=== PATIENT | male | born 1945 | race Caucasian/White ===

== ENCOUNTER 2018-11-14 13:46 | Inpatient (IN) | payer OTHER, MEDICARE ==
--- NOTE | 2018-11-14 14:29 | EDPHY ---
H & P Stated Complaint: open wound r caballero concerned r/t infection/hx diabetes Time Seen by Provider: 11/14/18 14:22 HPI/ROS: CHIEF COMPLAINT: Diabetic wound HISTORY OF PRESENT ILLNESS: Patient is a 73-year-old man with morbid obesity and type 2 diabetes as well as a single cardiac stent who comes to the emergency department complaining of right lower extremity wound. He states that he recently moved from [place] and has not established primary care here. He states that he has been eating increased carbohydrates since moving as well. He noticed over last several days a wound developing to his right caballero. It is foul smelling. There is surrounding erythema. Severity: Moderate Modifying factors: The none REVIEW OF SYSTEMS: Constitutional: denies: chills, fever, recent illness, recent injury EENTM: denies: blurred vision, double vision, nose congestion Respiratory: denies: cough, shortness of breath Cardiac: denies: chest pain, irregular heart rate, lightheadedness, palpitations Gastrointestinal/Abdominal: denies: abdominal pain, diarrhea, nausea, vomiting, blood streaked stools Genitourinary: denies: dysuria, frequency, hematuria, pain Musculoskeletal: denies: joint pain, muscle pain Skin: See HPI Neurological: denies: headache, numbness, paresthesia, tingling, dizziness, weakness Hematologic/Lymphatic: denies: blood clots, easy bleeding, easy bruising Immunologic/allergic: denies: HIV/AIDS, transplant 10 systems reviewed and negative except as noted EXAM: GENERAL: Well-appearing, well-nourished and in no acute distress. HEAD: Atraumatic, normocephalic. EYES: Pupils equal round and reactive to light, extraocular movements intact, sclera anicteric, conjunctiva are normal. ENT: TMs normal, nares patent, oropharynx clear without exudates. Moist mucous membranes. NECK: Normal range of motion, supple without lymphadenopathy or JVD. LUNGS: Breath sounds clear to auscultation bilaterally and equal. No wheezes rales or rhonchi. HEART: Regular rate and rhythm without murmurs, rubs or gallops. ABDOMEN: Soft, nontender, normoactive bowel sounds. No guarding, no rebound. No masses appreciated. BACK: No CVA tenderness, no spinal tenderness, step-offs or deformities EXTREMITIES: Normal range of motion, no pitting or edema. No clubbing or cyanosis. NEUROLOGICAL: Cranial nerves II through XII grossly intact. Normal speech, normal gait. 5/5 strength, normal movement in all extremities, normal sensation , normal reflexes PSYCH: Normal mood, normal affect. SKIN: 5 x 4 cm irregular area of ulceration with surrounding erythema. Foul smelling, no visible purulent drainage or fluctuance. Source: Patient Exam Limitations: No limitations - Personal History Current Tetanus Diphtheria and Acellular Pertussis (TDAP): Yes - Medical/Surgical History Hx Asthma: No Hx Chronic Respiratory Disease: No Hx Diabetes: Yes Hx Cardiac Disease: No Hx Renal Disease: No Hx Cirrhosis: No Hx Alcoholism: No Hx HIV/AIDS: No Hx Splenectomy or Spleen Trauma: No Other PMH: htn diabetes cardiac stent - Family History Significant Family History: No pertinent family hx - Social History Smoking Status: Never smoked Alcohol Use: None Drug Use: None Constitutional: Initial Vital Signs Temperature (C) 36.7 C 11/14/18 13:51 Heart Rate 61 11/14/18 13:51 Respiratory Rate 18 11/14/18 13:51 Blood Pressure 144/62 H 11/14/18 13:51 O2 Sat (%) 95 11/14/18 13:51 O2 Delivery Mode Room Air Allergies/Adverse Reactions: No Known Allergies Allergy (Unverified 11/14/18 13:48) Home Medications: Medication Instructions Recorded Levothyroxine [Synthroid 75 mcg 75 mcg PO DAILY06 11/14/18 (*)] Lisinopril [Zestril 40 mg (*)] 40 mg PO DAILY 11/14/18 Multivitamins [Multivitamin (*)] 1 each PO DAILY 11/14/18 metFORMIN HCL [Glucophage 500 mg 500 mg PO BIDMEAL 11/14/18 (*)] Medical Decision Making ED Course/Re-evaluation: 3:00 p.m. discussed the case with Dr. Bender who will admit. Antibiotics begun. Lab work pending. Differential Diagnosis: Partial list of the Differential diagnosis considered include but were not limited to; diabetic wound infection, poorly-controlled diabetes, sepsis, cellulitis and although unlikely based on the history and physical exam, I also considered acute coronary disease, ischemia, DVT. - Data Points Laboratory Results: Laboratory Results 11/14/18 14:40 11/14/18 14:40 Microbiology Results: MICROBIOLOGY 11/14/18 14:50 Leg - Anaerobic Tube/Swab Gram Stain - Final Medications Given: Metronidazole/Sodium Chloride (Flagyl 500 Mg (Premix)) 100 mls @ 100 mls/hr IV Q8HRS BINDU PRN Reason: Protocol Stop: 12/14/18 15:59 Last Admin: 11/15/18 05:02 Dose: 100 mls Levothyroxine Sodium (Synthroid) 75 mcg PO DAILY06 [facility] Stop: 05/14/19 05:59 Last Admin: 11/15/18 05:02 Dose: 75 mcg Metformin HCl (Glucophage) 500 mg PO BIDMEAL BINDU Stop: 05/13/19 17:59 Last Admin: 11/14/18 17:56 Dose: 500 mg Discontinued Medications Sodium Chloride (Ns) 1,000 mls @ 0 mls/hr IV ONCE ONE; Wide Open PRN Reason: Protocol Stop: 11/14/18 14:31 Last Admin: 11/14/18 14:58 Dose: 1,000 mls Ceftriaxone Sodium/Dextrose (Rocephin 1 Gm (Premix)) 50 mls @ 100 mls/hr IV EDNOW ONE PRN Reason: Protocol Stop: 11/14/18 15:01 Last Admin: 11/14/18 15:01 Dose: 50 mls Departure - Departure Disposition: [place] Inpatient Acute Clinical Impression: Wound of right lower extremity Qualifiers: Encounter type: initial encounter Qualified Code(s): S81.801A - Unspecified open wound, right lower leg, initial encounter Diabetes Qualifiers: Diabetes mellitus type: type 2 Diabetes mellitus longterm insulin use: without middle or intermediate school principal use Diabetes mellitus complication status: with skin complications Diabetes mellitus complication detail: with other skin ulcer Qualified Code(s): E11.622 - Type 2 diabetes mellitus with other skin ulcer Condition: Fair
[2018-11-14] MEDS ORDERED: NS 1,000 ML IV ONE (14:30)
[2018-11-14 14:51] LABS: PLATELET COUNT 186 10^3/uL (150-400)
[2018-11-14 15:04] LABS: INR 1.05 (0.83-1.16); PROTIME(PATIENT) 13.3 SEC (12.0-15.0)
[2018-11-14] MEDS ORDERED: ONDANSETRON 4 MG/2 ML VIAL IVP PRN (15:23)
[2018-11-14] MEDS ORDERED: ONDANSETRON DISINTEGRATING 4 MG TAB PO PRN (15:23)
[2018-11-14] MEDS ORDERED: PROMETHAZINE HCL 25 MG/ML INJ IVP PRN (15:23)
[2018-11-14] MEDS ORDERED: oxyCODONE IR 5 MG TAB PO PRN (15:23)
[2018-11-14] MEDS ORDERED: HYDROmorphONE/DILAUDID 1 MG/ML INJ IVP PRN (15:23)
--- NOTE | 2018-11-14 15:41 | PDGENHP ---
History and Physical - Chief Complaint leg wound - History of Present Illness 73 yo M with PMH of DM2, morbid obesity, chronic venous stasis presenting with a wound present on his right caballero. He notes that he first noted the wound about one week ago, and he attempted to manage it himself with hydrogen peroxide and alcohol applied topically. He notes that despite that, it continued to worsen, and now is an open wound with surrounding erythema, purulent drainage and pain. He notes he has had similar issues in the past, but that in general he has managed his venous stasis with compression, and he has avoided any skin breakdown or infection for the most part when he is being seen by wound care. He has been in the process of moving here from [place], and notes that this has taken about 2 years and is still not complete, and due to that, he has neglected his health to some extent. He has reportedly been eating 'lots of carbs' and not checking his blood sugar. He has not established care here yet with a PCP and has not had any wound care either. He denies fever or chills, no chest pain or sob, no n/v. History Information - Allergies/Home Medication List Allergies/Adverse Reactions: No Known Allergies Allergy (Unverified 11/14/18 13:48) Home Medications: Levothyroxine [Synthroid 75 mcg (*)] 75 mcg PO DAILY06 11/14/18 [Last Taken ] Lisinopril [Zestril 40 mg (*)] 40 mg PO DAILY 11/14/18 [Last Taken 11/14/18] Multivitamins [Multivitamin (*)] 1 each PO DAILY 11/14/18 [Last Taken 11/14/18] metFORMIN HCL [Glucophage 500 mg (*)] 500 mg PO BIDMEAL 11/14/18 [Last Taken 09:00] I have personally reviewed and updated: family history, medical history, social history, surgical history - Past Medical History coronary artery disease (remote hx of stent x 1), diabetes type 2, hypertension , pneumonia Additional medical history: chronic venous stasis--notes 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 MARIO - Family History Positive for: hypertension, myocardial infarction (father of RI at age 67) , stroke (mother with multi infarct dementia and hx of stroke in her family) - Social History Smoking Status: Never smoked Alcohol Use: None Drug Use: None Additional social history: single, recently moved to [place] from [facility] Review of Systems Review of Systems: ROS: 10pt was reviewed & negative except for what was stated in HPI & below Physical Exam Physical Exam: Temp Pulse Resp BP Pulse Ox 36.7 C 61 18 144/62 H 95 11/14/18 13:51 11/14/18 13:51 11/14/18 13:51 11/14/18 13:51 11/14/18 13:51 Constitutional: no apparent distress, obese Eyes: PERRL, anicteric sclera Ears, Nose, Mouth, Throat: moist mucous membranes, hearing normal Cardiovascular: regular rate and rhythym, no murmur, rub, or gallop, edema Respiratory: no respiratory distress, no rales or rhonchi Gastrointestinal: normoactive bowel sounds, soft, non-tender abdomen Genitourinary: no bladder tenderness Skin: warm, erythema, other (2cm open purulent ulcer on right caballero with surrounding erythema) Musculoskeletal: full muscle strength, asymmetric calves (right > left) Neurologic: AAOx3 Psychiatric: interacting appropriately, not anxious, not encephalopathic Lab Data & Imaging Review 11/14/18 14:40 11/14/18 14:40 WBC 7.66 10^3/uL (3.80-9.50) 11/14/18 14:40 RBC 4.57 10^6/uL (4.40-6.38) 11/14/18 14:40 Hgb 14.3 g/dL (13.7-17.5) 11/14/18 14:40 Hct 43.3 % (40.0-51.0) 11/14/18 14:40 MCV 94.7 fL (81.5-99.8) 11/14/18 14:40 MCH 31.3 pg (27.9-34.1) 11/14/18 14:40 MCHC 33.0 g/dL (32.4-36.7) 11/14/18 14:40 RDW 15.5 % (11.5-15.2) H 11/14/18 14:40 Plt Count 186 10^3/uL (150-400) 11/14/18 14:40 MPV 9.4 fL (8.7-11.7) 11/14/18 14:40 Neut % (Auto) 71.3 % (39.3-74.2) 11/14/18 14:40 Lymph % (Auto) 19.3 % (15.0-45.0) 11/14/18 14:40 [place] % (Auto) 7.7 % (4.5-13.0) 11/14/18 14:40 Eos % (Auto) 1.0 % (0.6-7.6) 11/14/18 14:40 Baso % (Auto) 0.4 % (0.3-1.7) 11/14/18 14:40 Nucleat RBC Rel Count 0.0 % (0.0-0.2) 11/14/18 14:40 Absolute Neuts (auto) 5.46 10^3/uL (1.70-6.50) 11/14/18 14:40 Absolute Lymphs (auto) 1.48 10^3/uL (1.00-3.00) 11/14/18 14:40 Absolute Monos (auto) 0.59 10^3/uL (0.30-0.80) 11/14/18 14:40 Absolute Eos (auto) 0.08 10^3/uL (0.03-0.40) 11/14/18 14:40 Absolute Basos (auto) 0.03 10^3/uL (0.02-0.10) 11/14/18 14:40 Absolute Nucleated RBC 0.00 10^3/uL (0-0.01) 11/14/18 14:40 Immature Gran % 0.3 % (0.0-1.1) 11/14/18 14:40 Immature Gran # 0.02 10^3/uL (0.00-0.10) 11/14/18 14:40 PT 13.3 SEC (12.0-15.0) 11/14/18 14:40 INR 1.05 (0.83-1.16) 11/14/18 14:40 APTT 31.5 SEC (23.0-38.0) 11/14/18 14:40 VBG Lactic Acid 1.2 mmol/L (0.7-2.1) 11/14/18 14:37 Sodium 137 mEq/L (135-145) 11/14/18 14:40 Potassium 4.3 mEq/L (3.5-5.2) 11/14/18 14:40 Chloride 97 mEq/L (97-110) 11/14/18 14:40 Carbon Dioxide 28 mEq/l (22-31) 11/14/18 14:40 Anion Gap 12 mEq/L (6-14) 11/14/18 14:40 BUN 17 mg/dL (7-23) 11/14/18 14:40 Creatinine 1.1 mg/dL (0.7-1.3) 11/14/18 14:40 Estimated GFR > 60 11/14/18 14:40 Glucose 105 mg/dL (70-100) H 11/14/18 14:40 Calcium 9.3 mg/dL (8.5-10.4) 11/14/18 14:40 Total Bilirubin 0.6 mg/dL (0.1-1.4) 11/14/18 14:40 Assessment & Plan Assessment: Diabetes (Acute) Wound of right lower extremity (Acute) 73 yo M with PMH of CAD, DM, morbid obesity, chronic venous stasis presenting with RLE cellulitis # RLE cellulitis: in the setting of chronic venous stasis and venous stasis ulcer on the right caballero with associated purulence/erythema and pain. Started on ctx and will continue with addition of flagyl for now. Does not have c/o systemic sxs currently and not septic on arrival. # chronic venous stasis: with right leg significantly more edematous than left and patient reporting chronic varicosities on the right, will get US to r/o DVT and ask wound care to evaluate while in house, would benefit from OP wound care f/u as well # DM2: patient reports non compliance with DM diet and not checking his sugars regularly, currently on metformin 500bid with essentially normal BG on arrival, will get A1c, continue op regimen for now # HTN: on lisinopril as an OP and BP appears well controlled, continue OP regimen # CAD: without c/o chest pain, remote hx of stent # hypothyroid: continue lt4 # observation status # Patient new to my care. Old records reviewed and summarized as above. Care plan reviewed with ER doctor as above.
--- NOTE | 2018-11-14 17:25 | WOCRNPDOC ---
WOCRN Advanced Assessment Note - Skin Integrity Problem, Advanced Assess Right Anterior Lower Leg Dressing Type: Open to Air Exudate Amount: Scant Exudate Characteristic(s): Serosanguinous Integumentary Issue Intervention: Dressing Applied, Dressing Initialed & Dated Linda Wound Tissue: Erythema, Swollen, Lipodermatosclerosis, Hemosiderin Staining , Venous Dermatitis, Xerotic Linda Wound Swelling: None Wound Bed Constitution: Red/[place] - Non Granular Tissue (100%) Wound Edges: Attached, Irregular Site Measurement - Head-to-Toe Length X Width X Depth (cm): 3x3.5x0.1 (superior wound), 1x1.2x0.1 (inferior). Pulse Location & Description: Not able to palpate on right foot, left foot DP is 1+ Extremity Temperature: Warm Skin Integrity Problem Comment: Right leg is very swollen, 56 cm calf circumference and 35 at the ankle vs the left leg which is 50.5 and 30 cm respectively. There two wounds that are irregular chronic in appearance on the anterior lower leg. The wounds are surrounded by hemosiderin stained tissue with lipodermatosclerosis. However there is no staining circumferentially on either leg. Patient has varicose veins bilaterally, but worse in the right leg. Toes have a purple hue to them and the right foot has structural neuropathic changes. Discussed at length that patient needs to maintain a compression therapy fpc. Spandigrip size G provided. Patient balked at the compression and did not want to apply them as he thought they would be too tight. Advised that patient establish a relationship with a option trader now that he has moved to [place]. Outpatient wound healing center brochure provided. Patient should follow up with outpatient [facility] after D/C for continued wound care and compression therapy. Cleaned wounds with ns and gauze. Skin prep applied linda wound. Silvasorb to wound beds and dimethicone cream to skin around wounds. Wound care will follow.
[2018-11-14] MEDS: metFORMIN HCL 500 MG TAB PO SCH (17:56)
[2018-11-15] MEDS: LEVOTHYROXINE 75 MCG TAB PO SCH (05:02)
[2018-11-15 05:09] LABS: PLATELET COUNT 150 10^3/uL (150-400)
[2018-11-15] MEDS ORDERED: ENOXAPARIN 40 MG/0.4 ML SYR SC SCH (09:00)
[2018-11-15] MEDS: LISINOPRIL 40 MG TAB PO SCH (10:11)
[2018-11-15] MEDS: MULTIVITAMINS 1 EACH TAB PO SCH (10:11)
[2018-11-15] MEDS: metFORMIN HCL 500 MG TAB PO SCH ×2 (10:21→19:46)
[2018-11-15] MEDS: ACETAMINOPHEN 325 MG TAB PO PRN ×2 (10:22→17:56)
--- NOTE | 2018-11-15 11:37 | GCON ---
[f rep st] CONSULTATION DATE OF CONSULTATION: 11/15/2018 REFERRING PHYSICIAN: Tavon Olvera MD REASON FOR CONSULTATION: Right lower extremity cellulitis in the setting of venous stasis ulceration . HISTORY OF PRESENT ILLNESS: The patient is a 73-year-old male with a past medical history of venous insufficiency/stasis dermatitis, type 2 diabetes and morbid obesity, I am asked to see in consultatio n for new onset right lower extremity ulceration with concomitant skin and soft tissue infection. Th e patient describes developing an ulceration over the right lower extremity approximately 7-10 days a go. He treated this himself with hydrogen peroxide and alcohol. He has been in a complicated move f [facility] to [place] and notes that he has not been attending to his healthcare as he typically should be. More recently, he developed pain and erythema surrounding the area of ulceration with [facility] drainage of fluid. He has not experienced fever or chills. Today, he notes pain in a burning qual ity extending from the area of erythema more proximally toward the knee. He describes a prior histor y of venous insufficiency ulcerations approximately 3 years ago, treated successfully with compressio n and local wound care in [place]. He has not had any pain in his right thigh or inguinal region. He does not check his blood sugars to determine if his glycemic control has been more challenging. [place] park has spent a significant amount of time in the car and has not been able to elevate his leg signific antly. Given the above findings, I am now asked to assist in his ongoing management. PAST MEDICAL HISTORY: Coronary artery disease, diabetes mellitus, obesity, venous insufficiency, hyp ertension, hypothyroidism. PAST SURGICAL HISTORY: Appendectomy, possible small bowel obstruction with lysis of adhesions, coron marietta stent x1. CURRENT MEDICATIONS: Ceftriaxone 1 g IV daily, metronidazole 500 mg IV q.8 hours, multivitamin p.o. daily, metformin 500 mg p.o. twice daily, lisinopril 40 mg p.o. daily, Synthroid 75 mcg p.o. daily, L ovenox 40 mg subcutaneous daily. ALLERGIES: No known drug allergies. SOCIAL HISTORY: The patient does not smoke or drink alcohol. No drug use. Recent stress related to move as outlined above. FAMILY HISTORY: Coronary artery disease. REVIEW OF SYSTEMS: Outside of that noted in the HPI, the remainder of 10-system review is unremarkab le. The patient describes having lower blood pressure when receiving his antibiotics and sensation o f cold feet, which is now resolved. PHYSICAL EXAMINATION: VITAL SIGNS: Temperature 36.8, heart rate 52, respiratory rate 18, blood pres sure 135/71, oxygen saturation 91% on room air. GENERAL: The patient is an obese male in no acute d istress. He appears nontoxic. HEENT: There is no scleral icterus, conjunctival injection, or conju nctival petechiae. Oropharynx shows moist mucous membranes. No nasal discharge. No tenderness over the sinuses. NECK: Supple without palpable lymphadenopathy or thyromegaly. CHEST: Clear to auscu ltation bilaterally without adventitious sounds. Respiratory effort is normal. CARDIOVASCULAR: Reg ular rate and rhythm with distant heart tones. Multiple varicosities present in the lower extremitie s bilaterally. ABDOMEN: Obese, nontender and nondistended. Bowel sounds are present. No palpable organomegaly, but significantly limited by body habitus. MUSCULOSKELETAL: Right lower extremity diane ws 3+ edema; there is a central ulceration over the anterior caballero measuring approximately 4 x 5 cm; t here are violaceous, slightly boggy margins which are tender to palpation; there is no expressible dr ainage or purulence; there is erythema surrounding the ulcer bed with cellulitic component at the ext johan margins of erythema and hemosiderin staining; there is warmth and tenderness in this region. SK IN: See musculoskeletal; there is hemosiderin staining over the left anterior caballero from prior venous insufficiency. LYMPHATICS: There is tenderness in a lymphatic distribution extending from the lowe r extremity erythema toward the knee; there is no visible lymphangitis present; there is no pain in t he medial thigh or inguinal adenopathy. NEUROLOGIC: The patient is alert and interacts appropriatel y with examiner. Cranial nerves 2-12 are grossly intact. Sensation is grossly intact. Muscle tone and bulk are normal. LABORATORY DATA: White blood cell count 7.5, hematocrit 40.4, platelets 150, neutrophils 70%, and ly mphocytes 19%. Serum creatinine 1.0, hemoglobin A1c 6.7, venous lactate 1.2. Blood cultures x2 are pending. Culture from the right lower extremity wound shows 3+ white blood cells, 4+ GPCs, 2+ gram-p ositive rods, 1+ gram-negative rods with culture pending. Ultrasound of the right lower extremity sh ows no evidence of DVT. IMPRESSION: Right lower extremity cellulitis superimposed on venous insufficiency with stasis dermat itis/ulceration: Clinical findings consistent with cellulitis superimposed on venous stasis dermatit is with new onset ulceration. Wound Gram stain shows polymicrobial claudia, which may be somewhat diff icult to interpret as obtained from wound bed. This may help with determining if any resistant gram- positive claudia, such as methicillin-resistant Staphylococcus aureus are present, however. New burnin g pain present adjacent to area of cellulitis, likely in home sales representative of lymphangitis, although curren tly not visible. Based on above findings, I think patient requires continued IV antibiotic therapy a nd will need continued monitoring of the ulcer base as this ultimately may require debridement. We w ill simplify antibiotic therapy to Unasyn for good activity against Staphylococcus aureus, beta-hemol ytic streptococci and mixed claudia including anaerobes. RECOMMENDATIONS: 1. Unasyn 3 g IV q.6 hours. 2. Discontinue ceftriaxone and metronidazole. 3. Elevate right lower extremity. 4. Continue to follow appearance of ulceration over time, as this ultimately may require local debri urvashi. 5. The patient will need ongoing followup in the [facility] for management of his venous s tasis dermatitis/venous stasis ulcerations. 6. Follow clinical response to above measures. Thank you for this consultation. We will continue to follow the patient with you. /[id number]/MODL
[2018-11-15] MEDS: AMPICILLIN/SULBACTAM 3 GM in NS 100 ML IV SCH ×3 (12:01→23:14)
[2018-11-15] MEDS: ASPIRIN 81 MG CHEWABLE TAB PO SCH (12:01)
--- NOTE | 2018-11-15 15:52 | HOSPPROG ---
Hospitalist Progress Note Assessment/Plan: #Right leg ulceration with cellulitis: no e/o sepsis -appreciate Dr. Menon's eval -change to IV Unasyn -wound care #DM: metformin #HTN: home meds #CAD: ASA #Hypothyroidism:LT4 #Diet: DM #DVT ppx: Lovenox #Disp: inpatient admission for IV abx Subjective: no pain in leg Objective: Vital Signs Temp Pulse Resp BP Pulse Ox 37.1 C 57 L 20 122/50 H 87 L 11/15/18 15:30 11/15/18 15:30 11/15/18 15:30 11/15/18 15:30 11/15/18 15:30 Laboratory Results 11/15/18 04:51 11/15/18 04:51 11/14/18 11/15/18 11/16/18 05:59 05:59 05:59 Intake Total 550 Output Total 1850 350 Balance -1300 -350 PT 13.3 SEC (12.0-15.0) 11/14/18 14:40 INR 1.05 (0.83-1.16) 11/14/18 14:40 - Time Spent With Patient Time Spent with Patient: greater than 35 minutes Time Spent with Patient: Greater than 35 minutes spent on this patients care, greater than 50% of time spent counseling, educating, and coordinating care regarding the above mentioned plan. - Physical Exam Constitutional: obese Eyes: PERRL Ears, Nose, Mouth, Throat: moist mucous membranes Cardiovascular: regular rate and rhythym Respiratory: no respiratory distress Gastrointestinal: normoactive bowel sounds Genitourinary: no bladder fullness Musculoskeletal: other (right caballero with half-dollar sized ulceration with some purulence. Demarcated surrounding erythema) Neurologic: AAOx3 Psychiatric: interacting appropriately ICD10 Worksheet Patient Problems: Problems Problem Status Onset Diabetes Acute Wound of right lower extremity Acute
--- NOTE | 2018-11-15 16:40 | ASMTCASEMG ---
Living Arrangements What is your living Answers: Alone arrangement? Who do you live with? Type Of Residence What kind of residence do Answers: House you live in? Discharge Plan Comments Coordination Status Comments Notes: Patient is a 73yo single male who recently has moved here from [place]. Patient has a hx of PMH of CAD, DM, chronic venous stasis, morbid obesity, who presents with RLE cellulitis. Patient states his move has been over 2 years and he has not been caring for himself during the stress of this. Patient is currently OBS for RLE cellulitis, chronic venous stasis, DM2, HTN, CAD, hypothyroid. PT and wound care have been ordered. Patient has made a request for help getting an supervisor engine repair appointment. He wants the supervisor engine repair to serve as his PCP. CM did not have time to schedule this appointment today. CM to follow up in the morning. Date Signed: 11/15/2018 04:40 PM Electronically Signed By:Samantha Lopez LCSW
--- NOTE | 2018-11-15 17:05 | PDMN ---
Medical Necessity Medical necessity: MCG M70 Cellulitis, A-2 days: 73 yo w/ wound right caballero in setting of known hx chronic venous stasis. Wound is open, draining and painful. EVal reveals RLE cellulitis. Initially OBS but pt requires additional MN for ongoing IV antibx per ID consult recommendation. Micro shows wound w/ staph. BCs pending. Wound care. May require debridement. Hx CAD w/ stent, DM2, HTN, PNA, chronic venous stasis, morbid obesity. Change to IP status 11/15/18@1442 per MD order.
[2018-11-15] MEDS: ENOXAPARIN 40 MG/0.4 ML SYR SC SCH (19:46)
[2018-11-15] MEDS: HYDROCODONE/APAP 5/325 TAB PO PRN (22:09)
[2018-11-16] MEDS: AMPICILLIN/SULBACTAM 3 GM in NS 100 ML IV SCH ×2 (05:26→12:05)
[2018-11-16] MEDS: LEVOTHYROXINE 75 MCG TAB PO SCH (05:26)
[2018-11-16] MEDS: MULTIVITAMINS 1 EACH TAB PO SCH (08:57)
[2018-11-16] MEDS: ASPIRIN 81 MG CHEWABLE TAB PO SCH (08:58)
[2018-11-16] MEDS: LISINOPRIL 40 MG TAB PO SCH (08:58)
[2018-11-16] MEDS: metFORMIN HCL 500 MG TAB PO SCH (08:58)
[2018-11-16] MEDS: ENOXAPARIN 40 MG/0.4 ML SYR SC SCH (08:59)
[2018-11-16] MEDS: HYDROCODONE/APAP 5/325 TAB PO PRN ×2 (09:34→14:14)
--- NOTE | 2018-11-16 11:48 | PCMIDPN ---
Assessment/Plan: Assessment: 73-year-old man with right lower extremity ulcerated lesion with cellulitis and surrounding fluctuance soft tissue. Tolerating ampicillin/ sulbactam without side effect with ongoing severe pain of the right lower extremity but improving cellulitis. Surgical evaluation today to determine if he needs acute debridement of any tissues. If no operative management inpatient will follow in the Infectious Disease Clinic in conjunction with wound care clinic. 1. Right lower extremity ulceration with surrounding cellulitis in fluctuance, stable to improved 2. Diabetes mellitus, type 2 3. History of left lower extremity venous stasis ulceration that has healed to completion Plan: 1. Continue ampicillin/sulbactam while inpatient 2. When discharge can transition to Augmentin 875/125 mg twice daily x7 additional days 3. Surgical evaluation 4. Will arrange outpatient follow up with Dr. Menon for next week Len Damian MD Infectious Diseases 11/16/18 11:46 Subjective: No fever or chills in the past 24-hours. Tolerating oral diet with solids and liquids. No diarrhea, nausea, or other GI symptoms. No rash. Appetite normal. Ambulating with pain in the right lower extremity. Improved since admission but not back to baseline health. Objective: Vital Signs Temp Pulse Resp BP Pulse Ox 37.0 C 54 L 17 152/76 H 90 L 11/16/18 11:19 11/16/18 07:58 11/16/18 11:19 11/16/18 11:19 11/16/18 11:19 11/15/18 11/16/18 11/17/18 05:59 05:59 05:59 Intake Total 350 Balance 350 Medications Generic Name Dose Route Start Last Admin Trade Name Freq PRN Reason Stop Dose Admin Ampicillin Sodium/Sulbactam 100 mls @ 200 mls/hr 11/15/18 12:00 11/16/18 05: 26 Sodium 3 gm/ Sodium Chloride IV 12/15/18 11:59 100 mls Q6 BINDU Discontinued Medications Generic Name Dose Route Start Last Admin Trade Name Freq PRN Reason Stop Dose Admin Ceftriaxone Sodium/Dextrose 50 mls @ 100 mls/hr 11/15/18 09:00 11/15/18 10:10 Rocephin 1 Gm (Premix) IV 12/15/18 08:59 50 mls DAILY BINDU Protocol Ceftriaxone Sodium/Dextrose 50 mls @ 100 mls/hr 11/14/18 14:32 11/14/18 15:01 Rocephin 1 Gm (Premix) IV 11/14/18 15:01 50 mls EDNOW ONE Protocol Metronidazole/Sodium Chloride 100 mls @ 100 mls/hr 11/14/18 16:00 11/15/18 05 :02 Flagyl 500 Mg (Premix) IV 12/14/18 15:59 100 mls Q8HRS BINDU Protocol Microbiology 11/14/18 14:50 Leg - Anaerobic Tube/Swab Gram Stain - Final 11/14/18 15:03 Blood Blood Culture - Preliminary 11/14/18 14:50 Leg - Anaerobic Tube/Swab Wound Culture - Preliminary Staphylococcus Aureus 11/14/18 14:40 Blood Blood Culture - Preliminary Laboratory Tests 11/14/18 11/14/18 11/15/18 14:40 14:40 04:51 WBC 7.66 7.50 Plt Count 186 150 Absolute Neuts (auto) 5.46 5.25 Creatinine Hemoglobin A1c 6.7 H 11/15/18 04:51 WBC Plt Count Absolute Neuts (auto) Creatinine 1.0 Hemoglobin A1c - Physical Exam General Appearance: no apparent distress, non-toxic EENT: No scleral icterus Respiratory: No accessory muscle use, No crackles, No wheezing Neck: full range of motion, supple Cardiac/Chest: regular rate, rhythm, No bradycardia, No tachycardia, No diastolic murmur, No systolic murmur Extremities: No swelling Abdomen: normal bowel sounds, non-tender, soft, No distended, No guarding Skin: other (Right lower extremity anterior lower caballero with approximately 3 cm skin ulceration with purulence at the ulcer base, generalized edema extending to a total area of approximately 10 x 10 cm surrounding the ulcerated area with fluctuance, no induration; left lower extremity with healed anterior lower caballero lesion with scarring; bilateral lower extremity stasis dermatitis) Neuro/Psych: alert, normal mood/affect, oriented x 3, No confused - Time Spent With Patient Time Spent with Patient: greater than 25 minutes Time Spent with Patient: Greater than 25 minutes spent on this patients care, greater than 50% of time spent counseling, educating, and coordinating care regarding the above mentioned plan. ICD10 Worksheet Patient Problems: Problems Problem Status Onset Diabetes Acute Wound of right lower extremity Acute
--- NOTE | 2018-11-16 11:59 | PDIAF ---
- Diagnosis Code Status: Full Code - Medication Management Discharge Medications: electronically signed and located in the Home Medication List. - Orders Additional Instructions: Please contact [facility] outpatient Wound Healing Center for an appointment, at [phone], for follow up within 2-3 weeks. Apply dimethicone cream to bilateral lower legs and feet every morning before applying compression and every evening after taking off compression and before bed. Change dressings to right anterior lower leg every 3 days and prn. 1. Clean with ns and gauze or in shower with soap and water. 2. Skin prep linda wound. 3. Silvasorb gel to wound bed 4. Cover with Hydrofera blue ready 5. Secure with medipore tape. Opal Vieira CWON - Follow Up Care Current Providers and Referrals: NONE *PRIMARY CARE P,. [Primary Care Provider] - As per Instructions Hector Menon MD [Medical Doctor] - 11/23/18 11:30 am
--- NOTE | 2018-11-16 13:56 | HOSPPROG ---
Hospitalist Progress Note Assessment/Plan: #Right leg ulceration with cellulitis: no e/o sepsis -surgery to eval today. IV Unasyn while here. Augmentin for 7 additional days and wound care at [place] #DM: metformin #HTN: home meds #CAD: ASA #Hypothyroidism:LT4 #Diet: DM #DVT ppx: Lovenox #Disp: inpatient admission for IV abx Subjective: pain in min in right caballero Objective: Vital Signs Temp Pulse Resp BP Pulse Ox 37.0 C 54 L 17 152/76 H 90 L 11/16/18 11:19 11/16/18 07:58 11/16/18 11:19 11/16/18 11:19 11/16/18 11:19 11/15/18 11/16/18 11/17/18 05:59 05:59 05:59 Intake Total 350 Balance 350 PT 13.3 SEC (12.0-15.0) 11/14/18 14:40 INR 1.05 (0.83-1.16) 11/14/18 14:40 - Time Spent With Patient Time Spent with Patient: greater than 35 minutes Time Spent with Patient: Greater than 35 minutes spent on this patients care, greater than 50% of time spent counseling, educating, and coordinating care regarding the above mentioned plan. - Physical Exam Constitutional: obese Eyes: PERRL Ears, Nose, Mouth, Throat: moist mucous membranes Cardiovascular: regular rate and rhythym Respiratory: no respiratory distress Gastrointestinal: normoactive bowel sounds Musculoskeletal: other (right caballero ulcer with purulence and surronding erythema) Neurologic: CN II-XII Intact ICD10 Worksheet Patient Problems: Problems Problem Status Onset Diabetes Acute Wound of right lower extremity Acute
--- NOTE | 2018-11-16 14:54 | PDIAF ---
- Diagnosis Diagnosis: Right leg diabetic ulceration Code Status: Full Code - Medication Management Discharge Medications: electronically signed and located in the Home Medication List. - Orders Services needed: Home Care, Registered Nurse Home Care Face to Face: I certify that this patient was under my care and that I had the required [id number] encounter meeting the encounter requirements on the discharge day. My findings support the fact that the patient is homebound as defined in Home Care Face to Face Continued: CMS Chapter 7 Medicare Benefits Manual 30.1.1 , The condition of the patient is such that there exists a normal inability to leave home and consequently, leaving home would require a considerable and taxing effort. Diet Recommendation: no restrictions on diet Additional Instructions: Please contact [facility] outpatient Wound Healing Center for an appointment, at , for follow up within 2-3 weeks. Apply dimethicone cream to bilateral lower legs and feet every morning before applying compression and every evening after taking off compression and before bed. Change dressings to right anterior lower leg every 3 days and prn. 1. Clean with ns and gauze or in shower with soap and water. 2. Skin prep linda wound. 3. Silvasorb gel to wound bed 4. Cover with Hydrofera blue ready 5. Secure with medipore tape. Opal Vieira CWON - Follow Up Care Current Providers and Referrals: Wound Healing Center,[facility] [Clinic] - (Call to make a follow up appointment at the wound healing center) Hector Menon MD [Medical Doctor] - 11/23/18 11:30 am NONE *PRIMARY CARE P,. [Primary Care Provider] - As per Instructions
[2018-11-16 16:04] VITALS: BP 134/72
--- NOTE | 2018-11-16 16:36 | ASMTLACE ---
LACE Length of stay for Answers: 1 day current admission Acuity / Level of Answers: Yes Care: Did the patient have an inpatient admission? Comorbidities - select Answers: Coronary Artery Disease all that apply Diabetes (uncontrolled or controlled) Other Notes: HTN # of Emergency department Answers: 1-2 visits in the last 6 months Score: 9 Date Signed: 11/16/2018 04:35 PM Electronically Signed By:Gianna Montilla RN
--- NOTE | 2018-11-16 16:48 | ASMTCMCOM ---
CM Note CM Note Notes: Met with pt, per MD will need homecare for dressing changes. Pt prefers to go to wound clinic but they don't have any appointments until next week. Next dressing change is 11/19. CM sent referral to [facility] and they can accept. Pt also aware of new PCP appt on WednesdayNovember 21 at 1:30pm with Dr Higinio Cifuentes at [facility]. DC Plan: Home Care/ [facility] (RN) Date Signed: 11/16/2018 04:47 PM Electronically Signed By:Gianna Montilla RN
--- NOTE | 2018-11-16 16:50 | ASMTDCNOTE ---
Case Management Discharge Discharge Order Complete? Answers: Yes Patient to Obtain Answers: Independently Medications Transportation Arranged Answers: Other Notes: Self Faxed Final Orders Answers: Yes Discharge Comments Notes: D/w , final orders faxed. Pedro at [facility] notified. Date Signed: 11/16/2018 04:49 PM Electronically Signed By:Gianna Montilla RN
--- NOTE | 2018-11-16 19:53 | GDS ---
[f rep st] DISCHARGE SUMMARY DISCHARGE DIAGNOSES: 1. Right lower extremity ulceration with surrounding cellulitis. 2. Type 2 diabetes. 3. History of left lower extremity venous stasis ulceration. 4. Obesity. 5. Hypertension. 6. Coronary artery disease. 7. Hypothyroidism. HISTORY OF PRESENT ILLNESS: 73-year-old male with hypertension, diabetes, history of left leg ulcera tion presents with right caballero wound. He noted initially a week ago and he attempted to manage it him self with hydrogen peroxide and alcohol. Despite this, it progressed. He had similar issues in the past that were managed with compression. He has been in the process of moving here from [place]. HOSPITAL COURSE BY PROBLEM: 1. Right caballero ulceration with surrounding cellulitis: Evaluated by Infectious Disease and Surgery. No debridement needed. On IV Unasyn while here, transitioned to Augmentin for a total of 7 days. F ollow up with Dr. Menon. Will arrange for home care for wound care dressings. 2. Type 2 diabetes. I counseled him on compliance with diet and checking blood sugars. Will arrang e for PCP. 3. Hypertension. Lisinopril. 4. CAD: Chest-pain free. Remote history of stent. Continue aspirin. He is on a statin. 5. Hypothyroidism: Levothyroxine. DISPOSITION: Patient is stable for discharge home with home care for wound care. MEDICATIONS: Augmentin. FOLLOWUP: 1. Establish with PCP. 2. Wound Care Clinic. 3. Dr. Menon. PHYSICAL EXAM: GENERAL: Obese, no acute distress, nontoxic. CV: Regular rate and rhythm. LUNGS: Clear. SKIN: Right lower extremity caballero with a 3 cm skin ulceration with purulence. Surrounding e rythema. Chronic venous stasis changes of left caballero. PSYCH: Alert and oriented x3. TIME SPENT ON DISCHARGE: coordinating home care with case management assistant, discussing case with Chaz martin and Infectious Disease. /[id number]/MODL
--- NOTE | 2018-11-17 09:38 | PDCONSULT ---
Hospitality House Supervisor Note: Date of consultation 11/16/18 Requesting provider: Dr. Hector Menon Chief Complaint: venous leg ulcer/diabetic wound HPI: 73yo M admitted with R leg ulceration and cellulitis. This is a recurring wound and he has a history of delayed wound healing. He was evaluated by Dr. Menon who recommended surgical evaluation for possible need for debridement. He is currently on IV antibiotics. He reports that the wound has healed in the past with use of local wound care products and compression. He usually wears compression wraps, but recently the velcro has worn out so they are less effective. He also supplements his compression with ANA wraps. A limiting factor is his ability to don and doff the tight compression. He denies any fevers or chills. He has ad lower extremity ultrasounds in the past but is unsure if he has ever had a standing lower extremity ultrasound to evaluate for venous insufficiency. Past medical history: venous leg ulcer, type II diabetes, hypertension, CAD, hypothyroidism Past surgical history: appendectomy, other abdominal surgery unknown specifics "pinched intestines" Family medical history: father of AR at age 67, history of hypertension, stroke Allergies: NKDA Social history: lives at home independently, single, no tobacco alcohol or recreational drug use. Review of systems: No fevers or chills Physical exam: Gen: WDWM, obese, in no acute distress HEENT: NCAT, no hearing deficits, PER, MMM Resp: no increased WOB CV: 2+ peripheral edema bilaterally, palpable DP and PT pulses bilaterally Skin: R anterior caballero wound very superficial with granulation tissue in the base. Surround tissue edematous. Surrounding hyperpigmentation associated with venous stasis dermatitis. Hemosiderin deposition bilaterally. No erythema or purulence. Psych: mood and affect normal Neuro: grossly intact Assessment and plan: 73yo M with RLE venous leg ulcer. Recommend outpatient follow-up at the wound healing center for ongoing wound care. Continue hydrofera blue and absorptive outer bandage. Continue compression and elevation. No indication for surgical debridement at this time. Appreciate ID and hospitalists management. Patient additionally seen by Dr. Shani Harris who agrees with above impression and plan
--- NOTE | 2018-11-17 14:30 | ASDISCHSUM ---
Discharge Information Plan Status:Home with Home Health Medically Cleared to Leave: Discharge Date:11/16/2018 06:12 PM D/C Disposition:Home Health Service ADT D/C Disposition:Home, Routine, Self-Care Projected Discharge Date:11/16/2018 11:00 AM Transportation at D/C:Self Discharge Delay Reason: Follow-Up Date:11/16/2018 11:00 AM Discharge Slot: Final Diagnosis: Placement Information Referral Type:*Home Health Care Services Referral ID:[id number] Provider Name:[facility] [address] [address] Address 2: City:[place] Selection Factors: State:[place] Patient Contact Information Contact Name:MARISELA Relationship: Address: Home Phone: Work Phone: City: [facility] Phone: [facility]/[employer] Code: Email: Financial Information Financial Class:Medicare Primary Plan Desc:MEDICARE INPATIENT Primary Plan Number:[id number] Secondary Plan Desc:[employer]ARP/MDR SUPPLEMENT Secondary Plan Number:[id number] Assessment Information LACE LACE Length of stay for Answers: 1 day current admission Acuity / Level of Answers: Yes Care: Did the patient have an inpatient admission? Comorbidities - select Answers: Coronary Artery Disease all that apply Diabetes (uncontrolled or controlled) Other Notes: HTN # of Emergency department Answers: 1-2 visits in the last 6 months Score: 9 Date Signed: 11/16/2018 04:35 PM Electronically Signed By:Gianna Montilla RN [facility] Initial CM Assessment Living Arrangements What is your living Answers: Alone arrangement? Who do you live with? Type Of Residence What kind of residence do Answers: House you live in? Discharge Plan Comments Coordination Status Comments Notes: Patient is a 73yo single male who recently has moved here from [place]. Patient has a hx of PMH of CAD, DM, chronic venous stasis, morbid obesity, who presents with RLE cellulitis. Patient states his move has been over 2 years and he has not been caring for himself during the stress of this. Patient is currently OBS for RLE cellulitis, chronic venous stasis, DM2, HTN, CAD, hypothyroid. PT and wound care have been ordered. Patient has made a request for help getting an range management specialist appointment. He wants the range management specialist to serve as his PCP. CM did not have time to schedule this appointment today. CM to follow up in the morning. Date Signed: 11/15/2018 04:40 PM Electronically Signed By:Samantha Lopez LCSW [facility] CM Progress Note CM Note CM Note Notes: Met with pt, per MD will need homecare for dressing changes. Pt prefers to go to wound clinic but they don't have any appointments until next week. Next dressing change is 11/19. CM sent referral to [facility] and they can accept. Pt also aware of new PCP appt on WednesdayNovember 21 at 1:30pm with Dr Higinio Cifuentes at [facility]. DC Plan: Home Care/ [facility] (ДМИТРИЙ) Date Signed: 11/16/2018 04:47 PM Electronically Signed By:Gianna Montilla RN Case Management Discharge Plan Note Case Management Discharge Discharge Order Complete? Answers: Yes Patient to Obtain Answers: Independently Medications Transportation Arranged Answers: Other Notes: Self Faxed Final Orders Answers: Yes Discharge Comments Notes: D/w , final orders faxed. Pedro at [facility] notified. Date Signed: 11/16/2018 04:49 PM Electronically Signed By:Gianna Montilla RN Intervention Information Intervention Type:*RAPP-Signed Date of Service:11/15/2018 09:33 AM Patient Type:Observation Staff Member:Priscila Hart Hours: Discipline: Severity: Comment: Intervention Type:*Occurence 72 Date of Service:11/14/2018 01:56 PM Patient Type:Inpatient Staff Member:ДМИТРИЙ Weber Courtney Hours: Discipline: Severity: Comment:
--- NOTE | 2018-11-21 07:46 | PQFORM ---
PHYSICIAN QUERY FORM Needs Your Response This query form is being sent to you to assure this patient record is coded properly. Please respond to the question below: [employer] QUESTION: Dear Dr. Galicia, This diabetic patient is documented as being morbidly obese and noncompliant with diet and blood sugar surveillance. Due to his clinical indicators and your professional judgment, can a causal relationship between this patient's cellulitis and his diabetes be made? x__ yes no other Thank you for clarifying, DULCE Ruvalcaba HIM Coding INSTRUCTIONS FOR RESPONSE: Answer question by clicking on the "Edit Document" button. Move cursor to area below the stars. When complete, hit "Save." Click on the "Sign" button, then click "Sign" again. Type in your PIN and hit "Enter." MTDD
== END 2018-11-16 18:12 | disposition home health service (06) | DRG 638 ==
LOC: F3E 15:40 → OBSVTOIN 11-15 14:42
PROVIDERS: ADMIT Internal Medicine; ATTEND Internal Medicine
DX: E11.628 Type 2 diabetes mellitus with other skin complications (principal); L03.115 Cellulitis of right lower limb; E66.01 Morbid (severe) obesity due to excess calories; Z68.41 Body mass index [BMI] 40.0-44.9, adult; E11.622 Type 2 diabetes mellitus with other skin ulcer; I83.011 Varicose veins of right lower extremity with ulcer of thigh; I10 Essential (primary) hypertension; I25.10 Atherosclerotic heart disease of native coronary artery without angina pectoris; E03.9 Hypothyroidism, unspecified; I87.8 Other specified disorders of veins; Z79.84 Long term (current) use of oral hypoglycemic drugs; Z95.5 Presence of coronary angioplasty implant and graft; Z79.82 Long term (current) use of aspirin
CPT/HCPCS: 96374; 97116-GP; 97161-GP; 97165-GO; G0378; J0295; J0696; J1650